=== PATIENT | female | born 1985 | race Caucasian/White ===

== ENCOUNTER 2020-06-16 00:57 | Emergency (ER) | payer SELFPAY ==
[~2020-06-16] VITALS: Ht 152.4 cm; Wt 45.4 kg
[2020-06-16 01:07] VITALS: BP_SYST 129
[2020-06-16] MEDS ORDERED: NAPROXEN 250 MG TABLET PO ONE (01:15)
[2020-06-16] MEDS ORDERED: IBUPROFEN 600 MG TABLET ONE (01:35)
[2020-06-16] MEDS ORDERED: IBUPROFEN 600 MG TABLET PO ONE (01:45)
[2020-06-16] MEDS ORDERED: NAPR-686 PO (02:14)
[2020-06-16 02:30] VITALS: BP_SYST 129
== END 2020-06-16 02:30 | disposition home or self-care (01) ==
LOC: SED 00:57
DX: S80.01XA Contusion of right knee, initial encounter (principal); M22.3X1 Other derangements of patella, right knee; W10.9XXA Fall (on) (from) unspecified stairs and steps, initial encounter; Y93.89 Activity, other specified; Y92.89 Other specified places as the place of occurrence of the external cause; Y99.8 Other external cause status
CPT/HCPCS: 73564; 99283